=== PATIENT | female | born 1930 | race African-American/Black ===

== ENCOUNTER 2017-07-28 12:59 | Emergency (ER) | payer MEDICARE, OTHER ==
[~2017-07-28] VITALS: Ht 160 cm; Wt 72.6 kg
[~2017-07-28 12:59] MED LIST: AMLODIPINE BESYL5 MG ORAL; ASPIR 8181 MG ORAL; BENICAR HCT 401 EAC1 ORAL; SPIRONOLACTONE100 MG ORAL; TENORMIN25 MG ORAL
[2017-07-28] MEDS ORDERED: LIDOCAINE700 M1 TP (13:54)
[2017-07-28 13:56] VITALS: BP 168/90
[2017-07-28 14:24] VITALS: BP 168/90
--- NOTE | 2017-08-01 07:31 | Emergency Room Report ---
History of Present Illness General Chief Complaint: Pain Source: Patient Present Illness HPI Patient is 87-year-old female who presented after increased left knee pain. Patient gradual onset of symptoms. 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 Patient states the pain is somewhat increased. She reports having increased pain with ambulation. She denies recent trauma. She denies any severe swelling to her knee. Patient had been previously getting injections for knee pain. Allergies: Coded Allergies: PENICILLINS (Verified Allergy, Severe, 10/08/13) Patient History Past Medical History: see triage record Now: No Reviewed Nursing Documentation: PMH: Agreed, PSxH: Agreed Nursing Documentation-PMH Hx Cardiac Problems: Yes Hx Hypertension: Yes Hx Cancer: No Hx Gastrointestinal Problems: No Hx Neurological Problems: No Review of Systems All Other Systems: negative except mentioned in HPI Physical Exam Vital Signs Date Time Temp Pulse Resp B/P (MAP) Pulse Ox O2 Delivery O2 Flow Rate FiO2 07/28/17 13:23 98.4 86 18 168/90 97 Room Air General Appearance: well appearing, no apparent distress, alert Head: normocephalic, atraumatic ENT: hearing grossly normal, normal voice Neck: full range of motion, supple Respiratory: no respiratory distress, speaking full sentences Musculoskeletal: normal inspection, no calf tenderness, decreased range of mation Neurologic: normal inspection, alert, oriented x3, responsive, normal gait Psychiatric: mood/affect normal Skin: no rash Medical Decision Making Diagnostic Impression: Primary Impression: Arthritis ER Course Patient presented for knee pain. Differential diagnosis included was not limited to popliteal aneurysm, arthritis, dislocation, ligamentous injury, septic joint among others. Patient's benign exam and does not appear to require any further imaging or laboratory testing at this time. The patient's knee pain appears consistent with arthritis. She does not have a ligamentous laxities. Patient was ambulatory without assistance. The patient was given a lidocaine patch. The patient is advised to follow up with primary care doctor in 1-2 days. Patient is advised to return if any worsening condition or if any changes in status that are concerning. This report is dictated with [employer] software which may occasionally lead to discrepancies related to use of this software. Last Vital Signs Date Time Temp Pulse Resp B/P (MAP) Pulse Ox O2 Delivery O2 Flow Rate FiO2 07/28/17 14:24 98.4 18 168/90 97 Room Air 07/28/17 13:23 86 Status: improved Disposition: HOME, SELF-CARE Condition: Stable Scripts Lidocaine (Lidocaine) 1 Each Adh..patch 700 MG TP DAILY, #14 PATCH Prov: Holden Stallworth 07/28/17 Referrals: Minor Jennings MD (PCP) Patient Instructions: Arthritis Holden Stallworth Aug 01, 2017 07:31
== END 2017-07-28 14:26 | disposition home or self-care (01) ==
LOC: EMR 13:39
DX: M13.862 Other specified arthritis, left knee (principal); I10 Essential (primary) hypertension; Z88.0 Allergy status to penicillin
CPT/HCPCS: 99283